=== PATIENT | male | born 1960 | race Caucasian/White ===

== ENCOUNTER 2024-01-13 16:12 | Inpatient (IN) | payer OTHER ==
[~2024-01-13] VITALS: Ht 185.4 cm; Wt 123.8 kg
[2024-01-13 16:15] VITALS: BP_SYST 142; PULSE 95; RESP 19; TEMP 98.7; O2SAT 96
[2024-01-13 16:53] LABS: BASOPHILS % (AUTO) 0.2 % (0.0-2.0); EOSINOPHILS # (AUTO) 0.1 K/uL (0.0-0.4); EOSINOPHILS % (AUTO) 0.7 % (0.0-4.0); HEMATOCRIT 44.4 % (36-54); HEMOGLOBIN 14.9 g/dL (14.0-18.0); LYMPHOCYTES % (AUTO) 7.8 % (20.5-51.5); MEAN CORPUSCULAR HEMOGLOBIN 26 pg (27-31); MEAN CORPUSCULAR HGB CONC 34 % (32-36); MEAN CORPUSCULAR VOLUME 77 fL (79.0-98.0); MONOCYTES # (AUTO) 1.3 K/uL (0.0-1.0); MONOCYTES % (AUTO) 10.2 % (1.7-9.3); NEUTROPHILS # (AUTO) 10.2 K/uL (1.8-7.7); NEUTROPHILS % (AUTO) 81.1 % (40.0-70.0); PLATELET COUNT (AUTO) 274 K/uL (130-430); RED BLOOD CELL COUNT(AUTO) 5.75 MIL/uL (4.2-6.2); RED CELL DISTRIBUTION WIDTH 17.4 % (9.0-15.0); WHITE BLOOD COUNT (AUTO) 12.6 K/uL (4.8-10.8)
[2024-01-13] MEDS: FUROSEMIDE 40 MG/4 ML VIAL IVP ONE (17:25)
[2024-01-13 17:42] LABS: INR 1.5 (0.80-1.20)
[2024-01-13 17:47] LABS: ANION GAP 12 (5-15); CALCIUM 8.2 mg/dL (8.4-11.0); CARBON DIOXIDE 22 mmol/L (23-29); GFR AFRICAN AMERICAN 109 mL/min (>90); GLUCOSE 83 mg/dL (74-106); POTASSIUM 4.5 mmol/L (3.5-5.1); UREA NITROGEN, BLOOD 13 mg/dL (8-21)
[2024-01-13 17:48] LABS: GFR NON AFRICAN-AMERICAN 90 mL/min (>90)
[2024-01-13 17:49] LABS: SODIUM SERUM 113 mmol/L (136-145)
[2024-01-13 17:50] LABS: CHLORIDE 79 mmol/L (98-107)
[2024-01-13 18:39] LABS: CALCIUM 8.5 mg/dL (8.4-11.0); CREATININE 0.87 mg/dL (0.55-1.30); POTASSIUM 4.5 mmol/L (3.5-5.1)
[2024-01-13 19:01] LABS: BILIRUBIN,URINE NEGATIVE (NEGATIVE); CLARITY/URINE CLEAR (CLEAR); COLOR,URINE YELLOW (YELLOW); GLUCOSE,URINE NEGATIVE (NEGATIVE); KETONES,URINE 1+ (NEGATIVE); LEUKOCYTE ESTERASE ,URINE NEGATIVE (NEGATIVE); NITRITE, URINE NEGATIVE (NEGATIVE); PROTEIN URINE NEGATIVE (NEGATIVE); UROBILINOGEN,URINE 0.2 (0.2-1.0)
[2024-01-13] MEDS ORDERED: AMLO10TA88 PO (19:01)
[2024-01-13] MEDS ORDERED: ESCI20TA38 PO (19:01)
[2024-01-13] MEDS ORDERED: LISI1TAB57 PO (19:01)
[2024-01-13 19:02] LABS: BLOOD, URINE TRACE (NEGATIVE)
[2024-01-13 19:07] LABS: BACTERIA,URINE FEW /HPF (None Seen); MUCUS,URINE 2+ /LPF (None Seen); RBC,URINE 0-3 /HPF (0-3); WBC,URINE 0-3 /HPF (0-3)
[2024-01-13 21:20] VITALS: BP_SYST 117; PULSE 93; RESP 28; TEMP 97.8; O2SAT 90
[2024-01-13 21:30] VITALS: BP_SYST 117; PULSE 87; PULSE 93; RESP 20; TEMP 97.8; O2SAT 94
[2024-01-13] MEDS: FUROSEMIDE 100 MG in D5W 90 ML IV SCH (21:38)
[2024-01-13 22:00] VITALS: BP_SYST 125; PULSE 89; RESP 25; O2SAT 93
[2024-01-13 23:00] VITALS: BP_SYST 108; PULSE 80; RESP 27; O2SAT 93
[2024-01-14] VITALS (24 sets, daily range): BP systolic 94–162; PULSE 75–96; RESP 12–30; TEMP 97–98.4; O2SAT 84–96
[2024-01-14 04:55] LABS: BASOPHILS % (AUTO) 0.2 % (0.0-2.0); EOSINOPHILS % (AUTO) 0.4 % (0.0-4.0); HEMOGLOBIN 14.7 g/dL (14.0-18.0); LYMPHOCYTES # (AUTO) 1.1 K/uL (1.0-5.5); LYMPHOCYTES % (AUTO) 8.4 % (20.5-51.5); MEAN CORPUSCULAR HEMOGLOBIN 26 pg (27-31); MEAN CORPUSCULAR HGB CONC 33 % (32-36); MEAN CORPUSCULAR VOLUME 79 fL (79.0-98.0); MONOCYTES # (AUTO) 1.7 K/uL (0.0-1.0); MONOCYTES % (AUTO) 13.6 % (1.7-9.3); NEUTROPHILS # (AUTO) 9.8 K/uL (1.8-7.7); NEUTROPHILS % (AUTO) 77.4 % (40.0-70.0); PLATELET COUNT (AUTO) 276 K/uL (130-430); RED CELL DISTRIBUTION WIDTH 16.9 % (9.0-15.0); WHITE BLOOD COUNT (AUTO) 12.7 K/uL (4.8-10.8)
[2024-01-14 05:16] LABS: ALBUMIN 3.2 g/dL (3.4-4.8); CALCIUM 7.9 mg/dL (8.4-11.0); CREATININE 0.98 mg/dL (0.55-1.30); POTASSIUM 3.8 mmol/L (3.5-5.1); TOTAL BILIRUBIN 3.6 mg/dL (0.0-1.0); TOTAL PROTEIN, SERUM 6.1 g/dL (6.4-8.3)
[2024-01-14] MEDS: POTASSIUM CHLORIDE 20 MEQ TABLET.ER PO SCH (10:09)
[2024-01-14] MEDS: ACETAMINOPHEN 325 MG TABLET PO PRN (14:21)
[2024-01-14 14:57] LABS: CALCIUM 7.7 mg/dL (8.4-11.0); CREATININE 0.94 mg/dL (0.55-1.30); POTASSIUM 3.9 mmol/L (3.5-5.1)
[2024-01-14] MEDS ORDERED: ONDANSETRON HCL 4 MG/2 ML VIAL IVP PRN (15:15)
[2024-01-14 18:18] LABS: BARBITURATE, URINE NEGATIVE (NEG <=200); BENZODIAZEPINE, URINE NEGATIVE (NEG <=150); CANNABINOID, URINE NEGATIVE (NEG <=50); COCAINE, URINE NEGATIVE (NEG <=150); METHAMPHETAMINES SCREEN,URINE NEGATIVE (NEG <=500); OPIATE, URINE NEGATIVE (NEG <=100); PHENCYCLIDINE SCREEN,URINE NEGATIVE (NEG <=25); UR TRICYCLIC ANTIDEPRESSANTS NEGATIVE (NEG <=300); URINE AMPHETAMINE NEGATIVE (NEG <=500); URINE METHADONE NEGATIVE (NEG <=200); URINE OXYCODONE SCREEN NEGATIVE (NEG <=100)
[2024-01-15] VITALS (18 sets, daily range): BP systolic 105–145; PULSE 19–84; RESP 11–22; TEMP 98.1–98.6; O2SAT 80–99
[2024-01-15 05:44] LABS: BASOPHILS % (AUTO) 0.5 % (0.0-2.0); EOSINOPHILS # (AUTO) 0.2 K/uL (0.0-0.4); EOSINOPHILS % (AUTO) 2.2 % (0.0-4.0); HEMATOCRIT 45.2 % (36-54); LYMPHOCYTES # (AUTO) 0.9 K/uL (1.0-5.5); LYMPHOCYTES % (AUTO) 9.6 % (20.5-51.5); MEAN CORPUSCULAR HEMOGLOBIN 26 pg (27-31); MEAN CORPUSCULAR HGB CONC 33 % (32-36); MEAN CORPUSCULAR VOLUME 79 fL (79.0-98.0); MONOCYTES # (AUTO) 1.8 K/uL (0.0-1.0); MONOCYTES % (AUTO) 17.9 % (1.7-9.3); NEUTROPHILS # (AUTO) 6.9 K/uL (1.8-7.7); NEUTROPHILS % (AUTO) 69.8 % (40.0-70.0); PLATELET COUNT (AUTO) 265 K/uL (130-430); RED BLOOD CELL COUNT(AUTO) 5.75 MIL/uL (4.2-6.2); RED CELL DISTRIBUTION WIDTH 17.2 % (9.0-15.0); WHITE BLOOD COUNT (AUTO) 9.8 K/uL (4.8-10.8)
[2024-01-15 10:56] LABS: CALCIUM 8.3 mg/dL (8.4-11.0); CREATININE 0.9 mg/dL (0.55-1.30); POTASSIUM 3.5 mmol/L (3.5-5.1)
[2024-01-15] MEDS: FUROSEMIDE 20 MG/2 ML VIAL IVP SCH (13:33)
[2024-01-15] MEDS: APIXABAN 2.5 MG TABLET PO ONE (15:40)
[2024-01-15 16:17] LABS: CALCIUM 8.5 mg/dL (8.4-11.0); CREATININE 1.06 mg/dL (0.55-1.30); POTASSIUM 3.7 mmol/L (3.5-5.1)
[2024-01-15] MEDS: APIXABAN 2.5 MG TABLET PO SCH (20:09)
[2024-01-16 00:44] VITALS: BP_SYST 128; PULSE 96; RESP 18; TEMP 97.7; O2SAT 95
[2024-01-16 01:55] LABS: CALCIUM 8.9 mg/dL (8.4-11.0); CREATININE 0.99 mg/dL (0.55-1.30); POTASSIUM 3.9 mmol/L (3.5-5.1)
[2024-01-16 07:25] LABS: BASOPHILS # (AUTO) 0.1 K/uL (0.0-0.2); BASOPHILS % (AUTO) 0.8 % (0.0-2.0); EOSINOPHILS # (AUTO) 0.2 K/uL (0.0-0.4); EOSINOPHILS % (AUTO) 2.4 % (0.0-4.0); HEMATOCRIT 45.6 % (36-54); LYMPHOCYTES # (AUTO) 1.1 K/uL (1.0-5.5); LYMPHOCYTES % (AUTO) 13.2 % (20.5-51.5); MEAN CORPUSCULAR HEMOGLOBIN 26 pg (27-31); MEAN CORPUSCULAR HGB CONC 33 % (32-36); MEAN CORPUSCULAR VOLUME 80 fL (79.0-98.0); MONOCYTES # (AUTO) 1.3 K/uL (0.0-1.0); NEUTROPHILS # (AUTO) 5.4 K/uL (1.8-7.7); NEUTROPHILS % (AUTO) 67.6 % (40.0-70.0); PLATELET COUNT (AUTO) 239 K/uL (130-430); RED BLOOD CELL COUNT(AUTO) 5.74 MIL/uL (4.2-6.2); RED CELL DISTRIBUTION WIDTH 17.2 % (9.0-15.0)
[2024-01-16 07:45] LABS: CALCIUM 8.8 mg/dL (8.4-11.0); CREATININE 0.94 mg/dL (0.55-1.30); POTASSIUM 4.2 mmol/L (3.5-5.1)
[2024-01-16 08:00] VITALS: BP_SYST 109; PULSE 73; RESP 20; TEMP 97.7
[2024-01-16 11:23] VITALS: BP_SYST 132; PULSE 88; RESP 17; TEMP 98.1; O2SAT 93
[2024-01-16 12:06] LABS: CREATININE, URINE 18.5 mg/dL (Not Estab.); MICROALBUMIN URINE RANDOM < 3.0 ug/mL (Not Estab.); MICROALBUMIN/CREAT RATIO, UR <16 mg/g creat (0-29)
[2024-01-16 14:04] LABS: CALCIUM 9.6 mg/dL (8.4-11.0); CREATININE 1.25 mg/dL (0.55-1.30); POTASSIUM 5.3 mmol/L (3.5-5.1)
[2024-01-16 16:50] VITALS: BP_SYST 126; PULSE 81; RESP 17; TEMP 98.4; O2SAT 93
[2024-01-16 20:00] VITALS: BP_SYST 137; PULSE 85; RESP 18; TEMP 98.2; O2SAT 95
[2024-01-16] MEDS: DOCUSATE SODIUM 100 MG CAPSULE PO SCH (21:23)
[2024-01-17 03:00] VITALS: BP_SYST 119; PULSE 77; RESP 20; TEMP 98.8; O2SAT 95
[2024-01-17 03:43] LABS: BASOPHILS # (AUTO) 0.1 K/uL (0.0-0.2); BASOPHILS % (AUTO) 0.9 % (0.0-2.0); EOSINOPHILS # (AUTO) 0.4 K/uL (0.0-0.4); EOSINOPHILS % (AUTO) 4.4 % (0.0-4.0); HEMATOCRIT 46.7 % (36-54); HEMOGLOBIN 15.1 g/dL (14.0-18.0); LYMPHOCYTES # (AUTO) 1.5 K/uL (1.0-5.5); LYMPHOCYTES % (AUTO) 18.1 % (20.5-51.5); MEAN CORPUSCULAR HEMOGLOBIN 26 pg (27-31); MEAN CORPUSCULAR HGB CONC 32 % (32-36); MEAN CORPUSCULAR VOLUME 80 fL (79.0-98.0); MONOCYTES # (AUTO) 1.3 K/uL (0.0-1.0); MONOCYTES % (AUTO) 15.7 % (1.7-9.3); NEUTROPHILS % (AUTO) 60.9 % (40.0-70.0); PLATELET COUNT (AUTO) 224 K/uL (130-430); RED BLOOD CELL COUNT(AUTO) 5.83 MIL/uL (4.2-6.2); RED CELL DISTRIBUTION WIDTH 17.7 % (9.0-15.0); WHITE BLOOD COUNT (AUTO) 8.2 K/uL (4.8-10.8)
[2024-01-17 04:09] LABS: CALCIUM 8.6 mg/dL (8.4-11.0); CREATININE 0.93 mg/dL (0.55-1.30); POTASSIUM 4.5 mmol/L (3.5-5.1)
[2024-01-17] MEDS ORDERED: POTA-197 PO (07:31)
[2024-01-17] MEDS ORDERED: DOCU-144 PO (07:31)
[2024-01-17] MEDS ORDERED: FURO-150 PO (07:31)
[2024-01-17] MEDS ORDERED: APIX2.5T PO (07:35)
[2024-01-17 07:57] VITALS: BP_SYST 133; PULSE 85; RESP 18; TEMP 98.4; O2SAT 93
[2024-01-17 12:00] VITALS: BP_SYST 117; PULSE 88; RESP 20; TEMP 97.9; O2SAT 98
[2024-01-17 16:00] VITALS: BP_SYST 131; PULSE 82; RESP 20; TEMP 97.7; O2SAT 94
[2024-01-17 20:30] VITALS: BP_SYST 122; PULSE 86; RESP 20; TEMP 98.6; O2SAT 92
[2024-01-18] VITALS (7 sets, daily range): BP systolic 118–136; PULSE 65–103; RESP 16–20; TEMP 97–97.9; O2SAT 91–96
[2024-01-18 07:42] LABS: ALBUMIN 3.1 g/dL (3.4-4.8); BASOPHILS # (AUTO) 0.1 K/uL (0.0-0.2); BASOPHILS % (AUTO) 1.1 % (0.0-2.0); CALCIUM 9.2 mg/dL (8.4-11.0); CREATININE 1.06 mg/dL (0.55-1.30); EOSINOPHILS # (AUTO) 0.5 K/uL (0.0-0.4); EOSINOPHILS % (AUTO) 7.2 % (0.0-4.0); HEMATOCRIT 43.7 % (36-54); HEMOGLOBIN 14.4 g/dL (14.0-18.0); LYMPHOCYTES # (AUTO) 1.3 K/uL (1.0-5.5); LYMPHOCYTES % (AUTO) 20.1 % (20.5-51.5); MEAN CORPUSCULAR HEMOGLOBIN 26 pg (27-31); MEAN CORPUSCULAR HGB CONC 33 % (32-36); MEAN CORPUSCULAR VOLUME 80 fL (79.0-98.0); MONOCYTES # (AUTO) 1.1 K/uL (0.0-1.0); MONOCYTES % (AUTO) 15.9 % (1.7-9.3); NEUTROPHILS # (AUTO) 3.7 K/uL (1.8-7.7); NEUTROPHILS % (AUTO) 55.7 % (40.0-70.0); PHOSPHORUS 5.8 mg/dL (2.7-4.5); PLATELET COUNT (AUTO) 209 K/uL (130-430); POTASSIUM 4.8 mmol/L (3.5-5.1); RED BLOOD CELL COUNT(AUTO) 5.47 MIL/uL (4.2-6.2); RED CELL DISTRIBUTION WIDTH 17.2 % (9.0-15.0); TOTAL BILIRUBIN 1.8 mg/dL (0.0-1.0); TOTAL PROTEIN, SERUM 6.2 g/dL (6.4-8.3); WHITE BLOOD COUNT (AUTO) 6.6 K/uL (4.8-10.8)
[2024-01-18] MEDS ORDERED: FUROSEMIDE 40 MG TABLET PO SCH (18:00)
[2024-01-18] MEDS: NYSTATIN 15 GM TOPICAL POWDER TP SCH (23:11)
[2024-01-19] VITALS: BP_SYST 116; PULSE 76; RESP 16; TEMP 97.2; O2SAT 94
[2024-01-19 04:08] LABS: BASOPHILS # (AUTO) 0.1 K/uL (0.0-0.2); BASOPHILS % (AUTO) 1.1 % (0.0-2.0); EOSINOPHILS # (AUTO) 0.4 K/uL (0.0-0.4); EOSINOPHILS % (AUTO) 6.9 % (0.0-4.0); HEMATOCRIT 44.3 % (36-54); HEMOGLOBIN 14.6 g/dL (14.0-18.0); LYMPHOCYTES # (AUTO) 1.2 K/uL (1.0-5.5); LYMPHOCYTES % (AUTO) 19.1 % (20.5-51.5); MEAN CORPUSCULAR HEMOGLOBIN 26 pg (27-31); MEAN CORPUSCULAR HGB CONC 33 % (32-36); MEAN CORPUSCULAR VOLUME 80 fL (79.0-98.0); MONOCYTES % (AUTO) 15.8 % (1.7-9.3); NEUTROPHILS # (AUTO) 3.6 K/uL (1.8-7.7); NEUTROPHILS % (AUTO) 57.1 % (40.0-70.0); PLATELET COUNT (AUTO) 213 K/uL (130-430); RED BLOOD CELL COUNT(AUTO) 5.57 MIL/uL (4.2-6.2); RED CELL DISTRIBUTION WIDTH 17.6 % (9.0-15.0); WHITE BLOOD COUNT (AUTO) 6.2 K/uL (4.8-10.8)
[2024-01-19 04:24] LABS: ALBUMIN 3.4 g/dL (3.4-4.8); CREATININE 1.07 mg/dL (0.55-1.30); POTASSIUM 4.3 mmol/L (3.5-5.1); TOTAL BILIRUBIN 1.8 mg/dL (0.0-1.0); TOTAL PROTEIN, SERUM 6.6 g/dL (6.4-8.3)
[2024-01-19] MEDS: FUROSEMIDE 40 MG TABLET PO SCH (08:30)
[2024-01-19 08:34] VITALS: BP_SYST 127; PULSE 76; RESP 19; TEMP 98.2; O2SAT 92
[2024-01-19 10:30] VITALS: O2SAT 92
[2024-01-19 12:00] VITALS: BP_SYST 129; PULSE 80; RESP 20; TEMP 98.2; O2SAT 92
[2024-01-19] MEDS ORDERED: FURO-149 PO (13:06)
[2024-01-19 14:35] VITALS: BP_SYST 129; BP_SYST 139; PULSE 80; PULSE 83; RESP 19; RESP 20; TEMP 97.1; TEMP 98.2; O2SAT 92; O2SAT 93
[2024-01-19 16:42] VITALS: BP_SYST 139; PULSE 83; RESP 19; TEMP 97.1; O2SAT 93
== END 2024-01-19 17:35 | disposition home health service (06) | DRG 291 ==
LOC: SED 16:12 → SIC 19:45 → STU 01-15 18:11 → SMU 01-18 21:36
PROVIDERS: ADMIT Specialist; ATTEND Specialist
DX: I11.0 Hypertensive heart disease with heart failure (principal); J96.01 Acute respiratory failure with hypoxia; E87.1 Hypo-osmolality and hyponatremia; I50.813 Acute on chronic right heart failure; E87.8 Other disorders of electrolyte and fluid balance, not elsewhere classified; D72.829 Elevated white blood cell count, unspecified; S81.802A Unspecified open wound, left lower leg, initial encounter; S81.801A Unspecified open wound, right lower leg, initial encounter; I48.91 Unspecified atrial fibrillation; K74.60 Unspecified cirrhosis of liver; Z68.36 Body mass index [BMI] 36.0-36.9, adult; R60.1 Generalized edema; E66.9 Obesity, unspecified; F32.A Depression, unspecified; F41.9 Anxiety disorder, unspecified; Z79.01 Long term (current) use of anticoagulants
CPT/HCPCS: 36415; 71045; 76705; 80048; 80053; 80307; 81000; 81001; 81015; 82043; 82570; 83735; 83880; 84100; 84484; 85025; 85379; 85610; 85730; 87081; 93306; 97110-GP; 97116-GP; 97163-GP; 97530-GP; 99285; G0378; J1940; J7060

== ENCOUNTER 2024-04-12 02:03 | Inpatient (IN) | payer OTHER ==
[~2024-04-12] VITALS: Ht 185.4 cm; Wt 127.0 kg
[2024-04-12] VITALS (7 sets, daily range): BP systolic 106–129; PULSE 76–120; RESP 20–24; TEMP 97.1–98.8; O2SAT 2–94
[~2024-04-12 02:03] MED LIST: APIX2.5T PO; DOCU-144 PO; ESCI20TA38 PO; FURO-149 PO; POTA-197 PO
[2024-04-12] MEDS ORDERED: [UNRECOGNIZED DRUG - OTHER] PO (02:26)
[2024-04-12 03:00] LABS: BASOPHILS # (AUTO) 0.1 K/uL (0.0-0.2); BASOPHILS % (AUTO) 0.9 % (0.0-2.0); EOSINOPHILS # (AUTO) 0.1 K/uL (0.0-0.4); EOSINOPHILS % (AUTO) 0.8 % (0.0-4.0); HEMATOCRIT 46.5 % (36-54); HEMOGLOBIN 14.8 g/dL (14.0-18.0); LYMPHOCYTES # (AUTO) 1.9 K/uL (1.0-5.5); LYMPHOCYTES % (AUTO) 16.1 % (20.5-51.5); MEAN CORPUSCULAR HEMOGLOBIN 26 pg (27-31); MEAN CORPUSCULAR HGB CONC 32 % (32-36); MEAN CORPUSCULAR VOLUME 80 fL (79.0-98.0); MONOCYTES # (AUTO) 1.6 K/uL (0.0-1.0); MONOCYTES % (AUTO) 13.9 % (1.7-9.3); NEUTROPHILS % (AUTO) 68.3 % (40.0-70.0); PLATELET COUNT (AUTO) 264 K/uL (130-430); RED BLOOD CELL COUNT(AUTO) 5.81 MIL/uL (4.2-6.2); RED CELL DISTRIBUTION WIDTH 20.9 % (9.0-15.0); WHITE BLOOD COUNT (AUTO) 11.7 K/uL (4.8-10.8)
[2024-04-12] MEDS: dilTIAZem HCL IVP 5 MG/ML VIAL IVP ONE (03:00)
[2024-04-12 03:17] LABS: ALANINE AMINOTRANSFERASE 702 U/L (12-78); ALBUMIN 3.5 g/dL (3.4-4.8); ANION GAP 11 (5-15); ASPARTATE AMINOTRANSFERASE 842 U/L (10-37); BILIRUBIN,DIRECT 2.2 mg/dL (0.0-0.3); CALCIUM 8.7 mg/dL (8.4-11.0); CARBON DIOXIDE 22 mmol/L (23-29); CHLORIDE 92 mmol/L (98-107); CREATININE 1.17 mg/dL (0.55-1.30); GFR AFRICAN AMERICAN 80 mL/min (>90); GLUCOSE 93 mg/dL (74-106); POTASSIUM 4.7 mmol/L (3.5-5.1); SODIUM SERUM 125 mmol/L (136-145); TOTAL BILIRUBIN 5.1 mg/dL (0.0-1.0); TOTAL PROTEIN, SERUM 6.4 g/dL (6.4-8.3); UREA NITROGEN, BLOOD 31 mg/dL (8-21)
[2024-04-12 03:20] LABS: INR 2.2 (0.80-1.20)
[2024-04-12 03:22] LABS: GFR NON AFRICAN-AMERICAN 66 mL/min (>90)
[2024-04-12 03:33] LABS: BILIRUBIN,URINE NEGATIVE (NEGATIVE); BLOOD, URINE NEGATIVE (NEGATIVE); CLARITY/URINE CLEAR (CLEAR); COLOR,URINE YELLOW (YELLOW); GLUCOSE,URINE NEGATIVE (NEGATIVE); KETONES,URINE NEGATIVE (NEGATIVE); LEUKOCYTE ESTERASE ,URINE NEGATIVE (NEGATIVE); NITRITE, URINE NEGATIVE (NEGATIVE); PROTEIN URINE NEGATIVE (NEGATIVE); UROBILINOGEN,URINE 0.2 (0.2-1.0)
[2024-04-12] MEDS: METOPROLOL TARTRATE 25 MG TABLET PO SCH (06:23)
[2024-04-12] MEDS: FUROSEMIDE 20 MG TABLET PO SCH (06:25)
[2024-04-12] MEDS: FUROSEMIDE 20 MG/2 ML VIAL IVP ONE (13:44)
[2024-04-12] MEDS ORDERED: FUROSEMIDE 20 MG/2 ML VIAL IVP SCH (14:00)
[2024-04-12] MEDS: DOCUSATE SODIUM 100 MG CAPSULE PO ONE (17:37)
[2024-04-12] MEDS: FUROSEMIDE 40 MG/4 ML VIAL IVP SCH (17:38)
[2024-04-12] MEDS: VANCOMYCIN HCL 1.25 GM/NS 250 ML IV SCH (18:07)
[2024-04-12] MEDS: DOCUSATE SODIUM 100 MG CAPSULE PO SCH (22:08)
[2024-04-12] MEDS: METOPROLOL TARTRATE 50 MG TABLET PO SCH (22:09)
[2024-04-12] MEDS: APIXABAN 2.5 MG TABLET PO SCH (22:09)
[2024-04-13] VITALS: BP_SYST 115; PULSE 65; RESP 18; TEMP 97.9; O2SAT 94
[2024-04-13 05:12] LABS: BASOPHILS # (AUTO) 0.1 K/uL (0.0-0.2); BASOPHILS % (AUTO) 0.4 % (0.0-2.0); EOSINOPHILS # (AUTO) 0.1 K/uL (0.0-0.4); EOSINOPHILS % (AUTO) 0.9 % (0.0-4.0); HEMATOCRIT 45.6 % (36-54); HEMOGLOBIN 14.5 g/dL (14.0-18.0); LYMPHOCYTES # (AUTO) 0.9 K/uL (1.0-5.5); LYMPHOCYTES % (AUTO) 5.6 % (20.5-51.5); MEAN CORPUSCULAR HEMOGLOBIN 26 pg (27-31); MEAN CORPUSCULAR HGB CONC 32 % (32-36); MEAN CORPUSCULAR VOLUME 81 fL (79.0-98.0); MONOCYTES # (AUTO) 2.2 K/uL (0.0-1.0); NEUTROPHILS # (AUTO) 13.4 K/uL (1.8-7.7); NEUTROPHILS % (AUTO) 80.1 % (40.0-70.0); PLATELET COUNT (AUTO) 229 K/uL (130-430); RED BLOOD CELL COUNT(AUTO) 5.66 MIL/uL (4.2-6.2); RED CELL DISTRIBUTION WIDTH 20.8 % (9.0-15.0); WHITE BLOOD COUNT (AUTO) 16.7 K/uL (4.8-10.8)
[2024-04-13 05:27] LABS: ALBUMIN 3.3 g/dL (3.4-4.8); CALCIUM 8.4 mg/dL (8.4-11.0); CREATININE 1.01 mg/dL (0.55-1.30); POTASSIUM 3.9 mmol/L (3.5-5.1); TOTAL BILIRUBIN 4.4 mg/dL (0.0-1.0); TOTAL PROTEIN, SERUM 6.3 g/dL (6.4-8.3)
[2024-04-13 08:00] VITALS: BP_SYST 113; PULSE 88; RESP 28; TEMP 97.4; O2SAT 94
[2024-04-13] MEDS ORDERED: SPIRONOLACTONE 25 MG TABLET (ALDACTONE) PO SCH (09:00)
[2024-04-13] MEDS ORDERED: METO-306 PO (09:04)
[2024-04-13] MEDS ORDERED: PIPERACILLIN/TAZO 3.375 GM in D5W 50 ML IV ONE (10:00)
[2024-04-13] MEDS: PIPERACILLIN/TAZO 3.375 GM in D5W 50 ML IV SCH (10:04)
[2024-04-13 11:42] VITALS: BP_SYST 108; PULSE 79; RESP 18; TEMP 97.6; O2SAT 96
[2024-04-13] MEDS: BUMETANIDE 1 MG TABLET PO ONE (13:50)
[2024-04-13] MEDS ORDERED: PIPERACILLIN/TAZO 3.375 GM in D5W 50 ML IV SCH (14:00)
[2024-04-13 15:10] VITALS: BP_SYST 110; PULSE 78; RESP 16; TEMP 98.4
[2024-04-13 20:00] VITALS: BP_SYST 113; PULSE 83; RESP 20; TEMP 97.3; O2SAT 93
[2024-04-13 22:00] VITALS: O2SAT 93
[2024-04-14] VITALS: BP_SYST 119; PULSE 77; RESP 20; TEMP 97.3; O2SAT 95
[2024-04-14 08:00] VITALS: BP_SYST 100; PULSE 91; RESP 16; TEMP 98.2; O2SAT 98
[2024-04-14 08:14] LABS: BASOPHILS # (AUTO) 0.1 K/uL (0.0-0.2); EOSINOPHILS # (AUTO) 0.3 K/uL (0.0-0.4); EOSINOPHILS % (AUTO) 2.6 % (0.0-4.0); HEMATOCRIT 45.4 % (36-54); HEMOGLOBIN 14.3 g/dL (14.0-18.0); LYMPHOCYTES # (AUTO) 1.6 K/uL (1.0-5.5); LYMPHOCYTES % (AUTO) 16.1 % (20.5-51.5); MEAN CORPUSCULAR HEMOGLOBIN 26 pg (27-31); MEAN CORPUSCULAR HGB CONC 31 % (32-36); MEAN CORPUSCULAR VOLUME 81 fL (79.0-98.0); MONOCYTES # (AUTO) 1.7 K/uL (0.0-1.0); MONOCYTES % (AUTO) 17.5 % (1.7-9.3); NEUTROPHILS # (AUTO) 6.3 K/uL (1.8-7.7); PLATELET COUNT (AUTO) 217 K/uL (130-430); RED BLOOD CELL COUNT(AUTO) 5.57 MIL/uL (4.2-6.2); RED CELL DISTRIBUTION WIDTH 20.9 % (9.0-15.0)
[2024-04-14 08:38] LABS: CALCIUM 8.5 mg/dL (8.4-11.0); CREATININE 0.99 mg/dL (0.55-1.30); POTASSIUM 3.2 mmol/L (3.5-5.1)
[2024-04-14 10:08] VITALS: O2SAT 98
[2024-04-14 11:18] LABS: NEUTROPHILS % (AUTO) 62.8 % (40.0-70.0)
[2024-04-14 12:25] VITALS: BP_SYST 113; PULSE 78; RESP 18; TEMP 97.3; O2SAT 99
[2024-04-14] MEDS ORDERED: DOXY100C PO (12:25)
[2024-04-14] MEDS ORDERED: BUME1TAB9 PO (12:25)
[2024-04-14] MEDS: POTASSIUM CHLORIDE 20 MEQ/PKT PACKET PO ONE (13:13)
[2024-04-14 16:09] VITALS: BP_SYST 119; PULSE 80; RESP 17; TEMP 97.9; O2SAT 98
[2024-04-14 20:00] VITALS: BP_SYST 128; PULSE 92; RESP 18; TEMP 97.7; O2SAT 96
[2024-04-15] VITALS: BP_SYST 112; PULSE 95; RESP 17; TEMP 97.8; O2SAT 95
[2024-04-15 07:09] LABS: BASOPHILS # (AUTO) 0.1 K/uL (0.0-0.2); BASOPHILS % (AUTO) 0.9 % (0.0-2.0); EOSINOPHILS # (AUTO) 0.2 K/uL (0.0-0.4); EOSINOPHILS % (AUTO) 2.8 % (0.0-4.0); HEMATOCRIT 47.3 % (36-54); HEMOGLOBIN 14.7 g/dL (14.0-18.0); LYMPHOCYTES # (AUTO) 1.5 K/uL (1.0-5.5); LYMPHOCYTES % (AUTO) 17.4 % (20.5-51.5); MEAN CORPUSCULAR HEMOGLOBIN 25 pg (27-31); MEAN CORPUSCULAR HGB CONC 31 % (32-36); MEAN CORPUSCULAR VOLUME 81 fL (79.0-98.0); MONOCYTES # (AUTO) 1.1 K/uL (0.0-1.0); NEUTROPHILS # (AUTO) 5.7 K/uL (1.8-7.7); NEUTROPHILS % (AUTO) 65.9 % (40.0-70.0); PLATELET COUNT (AUTO) 211 K/uL (130-430); RED BLOOD CELL COUNT(AUTO) 5.88 MIL/uL (4.2-6.2); RED CELL DISTRIBUTION WIDTH 20.6 % (9.0-15.0); WHITE BLOOD COUNT (AUTO) 8.6 K/uL (4.8-10.8)
[2024-04-15 07:44] LABS: CALCIUM 8.5 mg/dL (8.4-11.0); CREATININE 0.97 mg/dL (0.55-1.30); POTASSIUM 3.4 mmol/L (3.5-5.1)
[2024-04-15 08:00] VITALS: BP_SYST 109; PULSE 83; RESP 15; TEMP 97.9; O2SAT 92
[2024-04-15 08:45] VITALS: O2SAT 92
[2024-04-15] MEDS: PSYLLIUM HUSK 1 PKT PACKET PO SCH (08:50)
[2024-04-15] MEDS: POTASSIUM CHLORIDE 20 MEQ/PKT PACKET PO ONE (10:44)
[2024-04-15] MEDS ORDERED: POTASSIUM CHLORIDE 20 MEQ TABLET.ER PO ONE (10:45)
[2024-04-15] MEDS: SPIRONOLACTONE 25 MG TABLET (ALDACTONE) PO ONE (10:48)
[2024-04-15] MEDS ORDERED: SPIR25TA PO (11:50)
[2024-04-15 12:45] VITALS: BP_SYST 117; PULSE 94; RESP 16; TEMP 98.4; O2SAT 97
[2024-04-15 14:50] VITALS: BP_SYST 117; PULSE 94; RESP 16; TEMP 98.4; O2SAT 97
[2024-04-16] MEDS ORDERED: FUROSEMIDE 40 MG/4 ML VIAL IVP SCH (09:00)
[2024-04-16] MEDS ORDERED: SPIRONOLACTONE 25 MG TABLET (ALDACTONE) PO SCH (09:00)
== END 2024-04-15 15:35 | disposition home health service (06) | DRG 291 ==
LOC: SED 02:03 → STU 04:51 → SMU 04-14 22:46
PROVIDERS: ADMIT Specialist; ATTEND Specialist
DX: I11.0 Hypertensive heart disease with heart failure (principal); I50.31 Acute diastolic (congestive) heart failure; E87.1 Hypo-osmolality and hyponatremia; L03.115 Cellulitis of right lower limb; I48.91 Unspecified atrial fibrillation; E87.6 Hypokalemia; E66.01 Morbid (severe) obesity due to excess calories; Z68.36 Body mass index [BMI] 36.0-36.9, adult; Z79.899 Other long term (current) drug therapy
CPT/HCPCS: 36415; 71045; 80048; 80053; 80076; 81001; 81003; 83880; 84484; 85025; 85379; 85610; 85730; 93005; 97110-GP; 97116-GP; 97530-GP; 99291; G0378; J1940; J2543; J3370; J3490; J7060